=== PATIENT | female | born 1995 | race Caucasian/White ===

== ENCOUNTER 2017-12-19 19:14 | Emergency (ER) | payer OTHER ==
[~2017-12-19] VITALS: Ht 167.6 cm; Wt 126.8 kg
[2017-12-19] MEDS ORDERED: LORTAB 7.57.5 MG PO (21:19)
[2017-12-19] MEDS ORDERED: FLEXERIL PO (21:19)
[2017-12-19 21:37] VITALS: BP 117/77
== END 2017-12-19 21:35 | disposition home or self-care (01) | DRG 552 ==
LOC: ED 19:14
DX: S13.4XXA Sprain of ligaments of cervical spine, initial encounter (principal); M62.838 Other muscle spasm; V89.2XXA Person injured in unspecified motor-vehicle accident, traffic, initial encounter